=== PATIENT | female | born 1945 | race African-American/Black ===

== ENCOUNTER 2017-02-18 20:04 | Emergency (ER) | payer MEDICAID, OTHER ==
[~2017-02-18] VITALS: Ht 167.6 cm; Wt 90.7 kg
[~2017-02-18 20:04] MED LIST: ALBUTEROL SULF8.5 GM INH; ALBUTEROL2.5 MG/3 M HHN; VICODIN 5-5001 EACH PO
[2017-02-18 20:27] VITALS: BP 165/76
--- NOTE | 2017-02-18 20:35 | Emergency Room Report ---
History of Present Illness General Chief Complaint: Pain Source: Patient Present Illness [facility] This is a 71-year-old female with no past medical history. She presents with chief complaint of left calf pain for the last 3 days. Onset was gradual. Mild swelling. Worse with walking. She tried to punch is not helping. Denies any fever chills denies any trauma. Pain is 7/10. No other injury. No shortness of breath. Not on control pill. No family history of blood clot. Allergies: Coded Allergies: PENICILLINS (Verified Allergy, Unknown, 02/18/17) Patient History Past Medical History: see triage record, old chart reviewed Past Surgical History: none Pertinent Family History: none Social History: Denies: smoking Now: No Immunizations: other Reviewed Nursing Documentation: PMH: Agreed, PSxH: Agreed Nursing Documentation-PMH Past Medical History: No History, Except For Hx Asthma: Yes Review of Systems Eye: Denies: blurred vision, eye pain ENT: Denies: ear pain, nose congestion, throat swelling Respiratory: Denies: cough, shortness of breath Cardiovascular: Denies: chest pain, palpitations Gastrointestinal: Denies: abdominal pain, diarrhea, nausea, vomiting Musculoskeletal: Denies: back pain, joint pain Skin: Denies: rash Neurological: Denies: headache, numbness Endocrine: Denies: increased thirst, increased urine Hematologic/Lymphatic: Denies: easy bruising All Other Systems: negative except mentioned in HPI Physical Exam Vital Signs Date Time Temp Pulse Resp B/P Pulse Ox O2 Delivery O2 Flow Rate FiO2 02/18/17 20:10 98.1 56 17 165/76 97 Room Air vitals with hypertension Sp02 EP Interpretation: reviewed, normal General Appearance: well appearing, no apparent distress, alert Head: normocephalic, atraumatic Eyes: bilateral eye EOMI, bilateral eye PERRL ENT: hearing grossly normal, normal pharynx Neck: full range of motion, supple, no meningismus Respiratory: chest non-tender, lungs clear, normal breath sounds Cardiovascular #1: regular rate, rhythm, no murmur Gastrointestinal: normal bowel sounds, non tender, no mass, no organomegaly, no bruit, non-distended Musculoskeletal: back normal, normal range of motion, other - Left calf with mild tenderness. Less than 1 cm increase in size compared to right. Sensation normal. Pulses normal. Psychiatric: mood/affect normal Skin: warm/dry Medical Decision Making Diagnostic Impression: Primary Impression: Muscle strain ER Course Patient with pain to the left calf. She said she walks a lot and very active. No evidence of DVT or fracture. Most likely a muscle strain or small tear. We' ll discharge home. 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 02/18/17 Additional Instructions: Followup with your DrCelestino in 7 days. Return if symptom worsen. VARUN GREEN M.D. Feb 18, 2017 20:35
[2017-02-18 21:30] VITALS: BP 155/74
[2017-02-18] MEDS ORDERED: IBUPROFEN600 MG ORAL (22:07)
[2017-02-18 22:13] VITALS: BP 155/74
--- NOTE | 2017-02-21 19:26 | Diagnostic Imaging Report ---
APPROVED REPORT CPT Code: 87097 Present Symptoms Lower Extremity Pain: Left LEFT LEG: Venous imaging reveals a patent deep venous system. There is no evidence of thrombus within the femoral, popliteal or tibial segments. The greater saphenous vein is also within normal limits. Doppler indicates normal spontaneous flow within these segments.
== END 2017-02-18 22:13 | disposition home or self-care (01) ==
LOC: EMR 20:40
DX: S86.912A Strain of unspecified muscle(s) and tendon(s) at lower leg level, left leg, initial encounter (principal); J45.909 Unspecified asthma, uncomplicated; Z88.0 Allergy status to penicillin; X58.XXXA Exposure to other specified factors, initial encounter; Y92.9 Unspecified place or not applicable
CPT/HCPCS: 93970; 99284

== ENCOUNTER 2017-12-22 20:28 | Emergency (ER) | payer OTHER ==
[~2017-12-22] VITALS: Ht 167.6 cm; Wt 93.4 kg
[~2017-12-22 20:28] MED LIST changes: +IBUPROFEN600 MG ORAL
[2017-12-22] MEDS ORDERED: LORazepam Inj 2mg/ml 1ml IV ONE (21:00)
--- NOTE | 2017-12-22 21:00 | Emergency Room Report ---
History of Present Illness General Chief Complaint: Palpitations Source: Patient Present Illness HPI This is a 72-year-old female with history of high blood pressure. She presents with chief complaint of palpitation. Been ongoing all day. Rajani heart beating fast. She has similar symptoms 9 months ago when she was at another hospital was admitted overnight. He said that her go the next day. Workup was negative. No fever chills but no nausea no vomiting. No syncope. She thinks it may be secondary to her blood pressure medication. She's complaint taking clindamycin and Tylenol No. 3 for a dental infection. Never had follow-up with dredgemaster for Holter monitor. Allergies: Coded Allergies: ASPIRIN (Verified Allergy, Unknown, 12/22/17) PENICILLINS (Verified Allergy, Unknown, 02/18/17) Patient History Past Medical History: see triage record, old chart reviewed Past Surgical History: none Pertinent Family History: none Social History: Denies: smoking Now: No Immunizations: other Reviewed Nursing Documentation: PMH: Agreed; PSxH: Agreed Nursing Documentation-PMH Past Medical History: No History, Except For Hx Hypertension: Yes Hx Asthma: Yes Review of Systems Cardiovascular: Reports: palpitations Physical Exam Vital Signs Date Time Temp Pulse Resp B/P (MAP) Pulse Ox O2 Delivery O2 Flow Rate FiO2 12/22/17 20:38 97.8 74 15 151/73 98 Room Air 97.9 vitals normal except for high blood pressure Sp02 EP Interpretation: reviewed, normal General Appearance: well appearing, no apparent distress, alert Head: normocephalic, atraumatic Eyes: bilateral eye PERRL, bilateral eye EOMI ENT: hearing grossly normal, normal pharynx Neck: full range of motion, supple, no meningismus Respiratory: chest non-tender, lungs clear, normal breath sounds Cardiovascular #1: regular rate, rhythm, no murmur Gastrointestinal: normal bowel sounds, non tender, no mass, no organomegaly, no bruit, non-distended Musculoskeletal: back normal, gait/station normal, normal range of motion Psychiatric: mood/affect normal Skin: warm/dry Medical Decision Making Diagnostic Impression: Primary Impression: Palpitations EKG Diagnostic Results Rate: normal Rhythm: NSR ST Segments: no acute changes Rhythm Strip Diag. Results Rhythm Strip Time: 20:59 EP Interpretation: yes Rate: 70 Rhythm: NSR, no PVC's, no ectopy Last Vital Signs Date Time Temp Pulse Resp B/P (MAP) Pulse Ox O2 Delivery O2 Flow Rate FiO2 12/22/17 20:38 97.8 74 15 151/73 98 Room Air 97.9 Status: improved Disposition: HOME, SELF-CARE Condition: Stable Patient Instructions: Palpitations Additional Instructions: Follow-up with your DrCelestino for referral to see a dredgemaster. Follow-up within 7 days. I recommend you get a Holter monitor. Return if symptom worsen. VARUN GREEN M.D. Dec 22, 2017 21:00
[2017-12-22 21:19] VITALS: BP 131/67
[2017-12-22 21:31] LABS: BASOPHILS % (AUTO) 1.5 % (0.0-2.0); EOSINOPHILS % (AUTO) 2.1 % (0.0-3.0); HEMATOCRIT 38.9 % (37.0-47.0); HEMOGLOBIN 13.4 G/DL (12.0-16.0); LYMPHOCYTES % (AUTO) 22.6 % (20.0-45.0); MEAN CORPUSCULAR VOLUME 100 FL (80-99); MONOCYTES % (AUTO) 11.5 % (1.0-10.0); NEUTROPHILS % (AUTO) 62.4 % (45.0-75.0); PLATELET COUNT 274 K/UL (150-450); RED BLOOD COUNT 3.91 M/UL (4.20-5.40); WHITE BLOOD COUNT 11.3 K/UL (4.8-10.8)
[2017-12-22 21:36] LABS: ANION GAP 6 mmol/L (5-15); BLOOD UREA NITROGEN 21 mg/dL (7-18); CALCIUM 9.6 MG/DL (8.5-10.1); CARBON DIOXIDE 31 MMOL/L (21-32); CHLORIDE 101 MMOL/L (98-107); CREATININE 1.2 MG/DL (0.55-1.30); POTASSIUM 3.5 MMOL/L (3.5-5.1); SODIUM 138 MMOL/L (136-145)
[2017-12-22] MEDS ORDERED: HYDRALAZINE HCL50 MG ORAL (21:46)
[2017-12-22] MEDS ORDERED: HYDROCHLOROTHIA25 MG ORAL (21:46)
[2017-12-22 21:56] VITALS: BP 137/58
--- NOTE | 2017-12-23 16:40 | Cardiology Report ---
APPROVED REPORT EKG Measurement Heart [id number] Normal sinus rhythm Normal ECG
== END 2017-12-22 21:56 | disposition home or self-care (01) ==
LOC: EMR 20:59
DX: R00.2 Palpitations (principal); I10 Essential (primary) hypertension; J45.909 Unspecified asthma, uncomplicated; Z88.0 Allergy status to penicillin; Z88.6 Allergy status to analgesic agent
CPT/HCPCS: 36415; 80048; 84484; 85025; 93005; 96374; 96375; 99283

== ENCOUNTER 2018-09-16 09:43 | Emergency (ER) | payer OTHER ==
[~2018-09-16] VITALS: Ht 167.6 cm; Wt 91.6 kg
[~2018-09-16 09:43] MED LIST changes: +HYDRALAZINE HCL50 MG ORAL; +HYDROCHLOROTHIA25 MG ORAL
--- NOTE | 2018-09-16 09:58 | NUR ---
ED Nurse Note: Pt came in due to body weakness x 1 week. Pt states whenever she takes her home medications, she feels weak. No other symptoms noted. Pt is AAO x4, ambulates with steady gait. No respiratory distress.
--- NOTE | 2018-09-16 10:20 | NUR ---
ED Nurse Note: Dr Brown at the bed side.
--- NOTE | 2018-09-16 10:28 | Emergency Room Report ---
History of Present Illness General Chief Complaint: Generalized Weakness Source: Patient, Medical Record Present Illness HPI Patient reports that she has had a recent change in medications Has added hydrochlorothiazide to her blood pressure medicine Feels that since then she has been having more weakness than usual Low energy is the way she describes it Denies any change with exertion or position denies any chest pain or shortness of breath denies any vomiting or diarrhea denies any fevers or chills Denies any focality to her weakness Allergies: Coded Allergies: ASPIRIN (Verified Allergy, Unknown, 12/22/17) PENICILLINS (Verified Allergy, Unknown, 02/18/17) Patient History Past Medical History: see triage record Pertinent Family History: none Last Menstrual Period: menopause Reviewed Nursing Documentation: PMH: Agreed; PSxH: Agreed Nursing Documentation-PMH Past Medical History: No History, Except For Hx Hypertension: Yes Hx Asthma: Yes Review of Systems All Other Systems: negative except mentioned in HPI Physical Exam Vital Signs Date Time Temp Pulse Resp B/P (MAP) Pulse Ox O2 Delivery O2 Flow Rate FiO2 09/16/18 09:48 98.2 64 18 160/81 98 Room Air Sp02 EP Interpretation: reviewed, normal General Appearance: well appearing, no apparent distress Head: normocephalic, atraumatic Eyes: bilateral eye PERRL, bilateral eye EOMI ENT: hearing grossly normal, normal pharynx, TMs + canals normal, uvula midline Neck: full range of motion, supple, no meningismus, no bony tend Respiratory: lungs clear, normal breath sounds, no rhonchi, no respiratory distress, no retraction, no accessory muscle use Cardiovascular #1: normal peripheral pulses, regular rate, rhythm, no edema, no gallop, no JVD, no murmur Gastrointestinal: normal bowel sounds, non tender, soft, no mass, no organomegaly, non-distended, no guarding, no hernia, no pulsatile mass, no rebound Genitourinary: no CVA tenderness Musculoskeletal: normal inspection Neurologic: oriented x3, responsive, molder feeder III-XII nml as tested, motor strength/ tone normal, sensory intact Psychiatric: mood/affect normal Skin: normal color, no rash, warm/dry, palpation normal Lymphatic: normal inspection, no adenopathy Medical Decision Making Diagnostic Impression: Primary Impression: Episode of generalized weakness Additional Impressions: UTI (urinary tract infection) Dehydration ER Course Given the patient's history exam and presentation multiple differentials and consideration Patient has extensive blood work initiated There is evidence of some dehydration with elevated CK urine sample also shows infection Patient is encouraged to discuss her medications including hydrochlorothiazide with her physician patient also reports some cramping which could be related to her medication Labs Test 09/16/18 10:35 White Blood Count 9.1 K/UL (4.8-10.8) Red Blood Count 4.25 M/UL (4.20-5.40) Hemoglobin 13.9 G/DL (12.0-16.0) Hematocrit 44.0 % (37.0-47.0) Mean Corpuscular Volume 104 FL (80-99) Mean Corpuscular Hemoglobin 32.7 PG (27.0-31.0) Mean Corpuscular Hemoglobin Concent 31.6 G/DL (32.0-36.0) Red Cell Distribution Width 11.2 % (11.6-14.8) Platelet Count 309 K/UL (150-450) Mean Platelet Volume 5.9 FL (6.5-10.1) Neutrophils (%) (Auto) 65.2 % (45.0-75.0) Lymphocytes (%) (Auto) 23.1 % (20.0-45.0) Monocytes (%) (Auto) 8.7 % (1.0-10.0) Eosinophils (%) (Auto) 1.4 % (0.0-3.0) Basophils (%) (Auto) 1.5 % (0.0-2.0) Urine Color Pale yellow Urine Appearance Slightly cloudy Urine pH 7 (4.5-8.0) Urine Specific [place] 1.005 (1.005-1.035) Urine Protein Negative (NEGATIVE) Urine Glucose (UA) Negative (NEGATIVE) Urine Ketones Negative (NEGATIVE) Urine Blood Negative (NEGATIVE) Urine Nitrite Negative (NEGATIVE) Urine Bilirubin Negative (NEGATIVE) Urine Urobilinogen Normal MG/DL (0.0-1.0) Urine Leukocyte Esterase 3+ (NEGATIVE) Urine RBC 0 /HPF (0 - 2) Urine WBC 15-20 /HPF (0 - 2) Urine Squamous Epithelial Cells Few /LPF (NONE/OCC) Urine Bacteria Occasional /HPF (NONE) Sodium Level 138 MMOL/L (136-145) Potassium Level 3.9 MMOL/L (3.5-5.1) Chloride Level 101 MMOL/L (98-107) Carbon Dioxide Level 33 MMOL/L (21-32) Anion Gap 4 mmol/L (5-15) Blood Urea Nitrogen 12 mg/dL (7-18) Creatinine 1.0 MG/DL (0.55-1.30) Estimat Glomerular Filtration Rate mL/min (>60) Glucose Level 90 MG/DL (74-106) Calcium Level 10.0 MG/DL (8.5-10.1) Total Bilirubin 0.5 MG/DL (0.2-1.0) Aspartate Amino Transf (AST/SGOT) 20 U/L (15-37) Alanine Aminotransferase (ALT/SGPT) 33 U/L (12-78) Alkaline Phosphatase 81 U/L (46-116) Total Creatine Kinase 516 U/L (26-308) Creatine Kinase MB 2.7 NG/ML (0.0-3.6) Creatine Kinase MB Relative Index 0.5 Troponin I 0.000 ng/mL (0.000-0.056) Total Protein 8.5 G/DL (6.4-8.2) Albumin 4.1 G/DL (3.4-5.0) Globulin 4.4 g/dL Albumin/Globulin Ratio 0.9 (1.0-2.7) Lipase 98 U/L (73-393) Thyroid Stimulating Hormone (TSH) 1.579 uiU/mL (0.358-3.740) Free Thyroxine 0.89 NG/DL (0.76-1.46) Rhythm Strip Diag. Results EP Interpretation: yes Rate: 70 Rhythm: NSR, no PVC's, no ectopy Last Vital Signs Date Time Temp Pulse Resp B/P (MAP) Pulse Ox O2 Delivery O2 Flow Rate FiO2 09/16/18 09:58 64 18 Room Air 09/16/18 09:48 98.2 160/81 98 Status: improved Disposition: HOME, SELF-CARE Condition: Improved Scripts Trimethoprim/Sulfamethoxazole 160/800* (BACTRIM DS TABLET*) 1 Each Tablet 1 TAB ORAL Q12H, #14 TAB 0 Refills Prov: Peter Brown DO 09/16/18 Referrals: NON PHYSICIAN (PCP) Additional Instructions: Patient is provided with the discharge instructions notified to follow up with primary doctor in the next 2-3 days otherwise return to the er with any worsening symptoms. Please note that this report is being documented using DRAGON technology. This can lead to erroneous entry secondary to incorrect interpretation by the dictating instrument. Peter Brown DO Sep 16, 2018 10:28
--- NOTE | 2018-09-16 10:40 | NUR ---
ED Nurse Note: Blood and urine sent.
[2018-09-16 10:44] VITALS: BP 164/66
[2018-09-16 10:51] LABS: APPEARANCE,URINE SLIGHTLY CLOUDY; BILIRUBIN, URINE NEGATIVE (NEGATIVE); COLOR,URINE PALE YELLOW; GLUCOSE, URINE (UA) NEGATIVE (NEGATIVE); KETONES,URINE NEGATIVE (NEGATIVE); LEUKOCYTE ESTERASE ,URINE 3+ (NEGATIVE); NITRITE,URINE NEGATIVE (NEGATIVE); PH,URINE 7 (4.5-8.0); PROTEIN,URINE NEGATIVE (NEGATIVE); UROBILINOGEN,URINE NORMAL MG/DL (0.0-1.0)
[2018-09-16 10:53] LABS: BASOPHILS % (AUTO) 1.5 % (0.0-2.0); EOSINOPHILS % (AUTO) 1.4 % (0.0-3.0); HEMOGLOBIN 13.9 G/DL (12.0-16.0); LYMPHOCYTES % (AUTO) 23.1 % (20.0-45.0); MEAN CORPUSCULAR VOLUME 104 FL (80-99); MONOCYTES % (AUTO) 8.7 % (1.0-10.0); NEUTROPHILS % (AUTO) 65.2 % (45.0-75.0); PLATELET COUNT 309 K/UL (150-450); RED BLOOD COUNT 4.25 M/UL (4.20-5.40); RED CELL DISTRIBUTION WIDTH 11.2 % (11.6-14.8); WHITE BLOOD COUNT 9.1 K/UL (4.8-10.8)
[2018-09-16 11:05] LABS: ANION GAP 4 mmol/L (5-15); BLOOD UREA NITROGEN 12 mg/dL (7-18); CARBON DIOXIDE 33 MMOL/L (21-32); CHLORIDE 101 MMOL/L (98-107); POTASSIUM 3.9 MMOL/L (3.5-5.1); SODIUM 138 MMOL/L (136-145)
[2018-09-16 11:40] LABS: ALANINE AMINOTRANSFERASE 33 U/L (12-78); ALBUMIN 4.1 G/DL (3.4-5.0); ALBUMIN/GLOBULIN RATIO 0.9 (1.0-2.7); ALKALINE PHOSPHATASE 81 U/L (46-116); ASPARTATE AMINO TRANSFERASE 20 U/L (15-37); BILIRUBIN,TOTAL 0.5 MG/DL (0.2-1.0); CKMB 2.7 NG/ML (0.0-3.6); CREATINE KINASE 516 U/L (26-308)
--- NOTE | 2018-09-16 11:44 | Diagnostic Imaging Report ---
Indication: Dyspnea Comparison: 04/22/2012 A single view chest radiograph was obtained. Findings: Cardiomediastinal appearance is within normal limits for age. The lungs are clear. Pulmonary vascularity is appropriate. The diaphragmatic contour is smooth and costophrenic angles are sharp. No pleural effusions are identified. The bones are unremarkable. Impression: No acute findings
[2018-09-16] MEDS ORDERED: Bactrim-DS 1 tab ORAL ONE (11:45)
[2018-09-16] MEDS ORDERED: BACTRIM DS TAB1 EAC1 ORAL (12:01)
[2018-09-16 12:11] VITALS: BP 151/80
--- NOTE | 2018-09-16 12:11 | NUR ---
ED Nurse Note: Pt cleared by ER MD for discharge. DC instructions/prescription given and explained to pt and verbalized understanding of teachings. All medical devices such as ID band/IV removed. Pt is AAO x4, ambulatory with all belongings sent.
--- NOTE | 2018-09-17 17:25 | Cardiology Report ---
APPROVED REPORT EKG Measurement Heart [id number] [place] P61 [id number] Sinus bradycardia Otherwise normal ECG
== END 2018-09-16 12:11 | disposition home or self-care (01) ==
LOC: EMR 10:25
DX: R53.1 Weakness (principal); N39.0 Urinary tract infection, site not specified; E86.0 Dehydration; I10 Essential (primary) hypertension; J45.909 Unspecified asthma, uncomplicated; Z88.0 Allergy status to penicillin; Z88.6 Allergy status to analgesic agent
CPT/HCPCS: 36415; 71045; 80053; 81003; 82550; 82553; 83690; 84439; 84443; 84484; 85025; 87086; 93005; 96360; 99284

== ENCOUNTER 2019-06-10 09:21 | Emergency (ER) | payer OTHER ==
[~2019-06-10] VITALS: Ht 167.6 cm; Wt 100.2 kg
[~2019-06-10 09:21] MED LIST changes: +BACTRIM DS TAB1 EAC1 ORAL
[2019-06-10 09:30] VITALS: BP 136/66
--- NOTE | 2019-06-10 09:45 | Emergency Room Report ---
History of Present Illness General Chief Complaint: Generalized Weakness Source: Medical Record Present Illness HPI 74-year-old female with history of hypertension presents with generalized weakness and loose bowel movements since yesterday. Patient stated the weakness started 3 days ago but worsened yesterday. She had 6 episodes of loose watery bowels, nonbloody, non-mucus. She denies any recent travel. She denies any recent illness. She denies any fevers chills nausea vomiting, rectal bleeding, history of abdominal surgeries. Patient states she is pending a D&C for abnormal vaginal bleeding and fibroids found on a scan earlier this year. Allergies: Coded Allergies: ASPIRIN (Verified Allergy, Unknown, 12/22/17) PENICILLINS (Verified Allergy, Unknown, 02/18/17) Nursing Documentation-[facility] Past Medical History: No History, Except For Hx Hypertension: Yes Hx Asthma: Yes Review of Systems Constitutional: Denies: chills, fever Respiratory: Denies: cough, shortness of breath Cardiovascular: Denies: chest pain, palpitations Gastrointestinal: Reports: diarrhea; Denies: abdominal pain, nausea, vomiting Genitourinary: Denies: dysuria, frequency Musculoskeletal: Denies: back pain Neurological: Denies: headache, numbness Physical Exam Vital Signs Date Time Temp Pulse Resp B/P (MAP) Pulse Ox O2 Delivery O2 Flow Rate FiO2 06/10/19 09:24 98.1 58 18 130/72 (91) 95 Room Air Sp02 EP Interpretation: reviewed, normal General Appearance: no apparent distress, alert, GCS 15, non-toxic Head: normocephalic, atraumatic Neck: full range of motion, supple/symm/no masses Respiratory: chest non-tender, lungs clear, normal breath sounds, speaking full sentences Cardiovascular #1: regular rate, rhythm, no edema Cardiovascular #2: 2+ radial (R), 2+ radial (L) Gastrointestinal: normal bowel sounds, non tender, soft, non-distended, no guarding, no rebound Genitourinary: normal inspection, no CVA tenderness Musculoskeletal: other - Moves all extremities spontaneously. Neurologic: other - No focal neurological deficits Medical Decision Making ER Course 72-year-old female who presents with weakness for 3 days. Associated with diarrhea. Patient's physical exam within normal limits. Differential includes electrolyte abnormality, dehydration, kidney failure, Patient's testing were to be within normal limits. Patient is stable for outpatient follow-up. Labs Test 06/10/19 09:34 06/10/19 09:43 Urine Color Pale yellow Urine Appearance Clear Urine pH 5 (4.5-8.0) Urine Specific [place] 1.010 (1.005-1.035) Urine Protein Negative (NEGATIVE) Urine Glucose (UA) Negative (NEGATIVE) Urine Ketones Negative (NEGATIVE) Urine Blood Negative (NEGATIVE) Urine Nitrite Negative (NEGATIVE) Urine Bilirubin Negative (NEGATIVE) Urine Urobilinogen Normal MG/DL (0.0-1.0) Urine Leukocyte Esterase 1+ (NEGATIVE) Urine RBC 0 /HPF (0 - 2) Urine WBC 0-2 /HPF (0 - 2) Urine Squamous Epithelial Cells Occasional /LPF Urine Bacteria Occasional /HPF (NONE) White Blood Count 6.9 K/UL (4.8-10.8) Red Blood Count 4.17 M/UL (4.20-5.40) Hemoglobin 13.6 G/DL (12.0-16.0) Hematocrit 40.5 % (37.0-47.0) Mean Corpuscular Volume 97 FL (80-99) Mean Corpuscular Hemoglobin 32.7 PG (27.0-31.0) Mean Corpuscular Hemoglobin Concent 33.7 G/DL (32.0-36.0) Red Cell Distribution Width 10.0 % (11.6-14.8) Platelet Count 277 K/UL (150-450) Mean Platelet Volume 6.2 FL (6.5-10.1) Neutrophils (%) (Auto) 72.1 % (45.0-75.0) Lymphocytes (%) (Auto) 12.5 % (20.0-45.0) Monocytes (%) (Auto) 12.8 % (1.0-10.0) Eosinophils (%) (Auto) 1.6 % (0.0-3.0) Basophils (%) (Auto) 0.9 % (0.0-2.0) Sodium Level 140 MMOL/L (136-145) Potassium Level 3.9 MMOL/L (3.5-5.1) Chloride Level 104 MMOL/L (98-107) Carbon Dioxide Level 29 MMOL/L (21-32) Anion Gap 7 mmol/L (5-15) Blood Urea Nitrogen 11 mg/dL (7-18) Creatinine 1.0 MG/DL (0.55-1.30) Estimat Glomerular Filtration Rate mL/min (>60) Glucose Level 99 MG/DL (74-106) Calcium Level 8.5 MG/DL (8.5-10.1) Total Bilirubin 0.5 MG/DL (0.2-1.0) Aspartate Amino Transf (AST/SGOT) 36 U/L (15-37) Alanine Aminotransferase (ALT/SGPT) 51 U/L (12-78) Alkaline Phosphatase 74 U/L (46-116) Total Protein 8.0 G/DL (6.4-8.2) Albumin 3.8 G/DL (3.4-5.0) Globulin 4.2 g/dL Albumin/Globulin Ratio 0.9 (1.0-2.7) Lipase 82 U/L (73-393) Lab Results Impression Within normal limits Last Vital Signs Date Time Temp Pulse Resp B/P (MAP) Pulse Ox O2 Delivery O2 Flow Rate FiO2 06/10/19 09:24 98.1 58 18 130/72 (91) 95 Room Air Disposition: HOME, SELF-CARE Condition: Stable Scripts Ondansetron* (ZOFRAN*) 4 Mg Tablet 4 MG ORAL Q6H PRN for Nausea & Vomiting for 3 Days, #10 TAB Prov: Marquise Leonardo M.D. 06/10/19 Marquise Leonardo M.D. Jun 10, 2019 09:45
[2019-06-10 09:51] LABS: APPEARANCE,URINE CLEAR; BILIRUBIN, URINE NEGATIVE (NEGATIVE); COLOR,URINE PALE YELLOW; GLUCOSE, URINE (UA) NEGATIVE (NEGATIVE); KETONES,URINE NEGATIVE (NEGATIVE); LEUKOCYTE ESTERASE ,URINE 1+ (NEGATIVE); NITRITE,URINE NEGATIVE (NEGATIVE); PH,URINE 5 (4.5-8.0); PROTEIN,URINE NEGATIVE (NEGATIVE); UROBILINOGEN,URINE NORMAL MG/DL (0.0-1.0)
[2019-06-10 10:07] LABS: BASOPHILS % (AUTO) 0.9 % (0.0-2.0); EOSINOPHILS % (AUTO) 1.6 % (0.0-3.0); HEMATOCRIT 40.5 % (37.0-47.0); HEMOGLOBIN 13.6 G/DL (12.0-16.0); LYMPHOCYTES % (AUTO) 12.5 % (20.0-45.0); MEAN CORPUSCULAR VOLUME 97 FL (80-99); MONOCYTES % (AUTO) 12.8 % (1.0-10.0); NEUTROPHILS % (AUTO) 72.1 % (45.0-75.0); PLATELET COUNT 277 K/UL (150-450); RED BLOOD COUNT 4.17 M/UL (4.20-5.40); WHITE BLOOD COUNT 6.9 K/UL (4.8-10.8)
[2019-06-10 10:25] LABS: ANION GAP 7 mmol/L (5-15); BLOOD UREA NITROGEN 11 mg/dL (7-18); CALCIUM 8.5 MG/DL (8.5-10.1); CARBON DIOXIDE 29 MMOL/L (21-32); CHLORIDE 104 MMOL/L (98-107); POTASSIUM 3.9 MMOL/L (3.5-5.1); SODIUM 140 MMOL/L (136-145)
[2019-06-10 10:29] LABS: ALANINE AMINOTRANSFERASE 51 U/L (12-78); ALBUMIN 3.8 G/DL (3.4-5.0); ALBUMIN/GLOBULIN RATIO 0.9 (1.0-2.7); ALKALINE PHOSPHATASE 74 U/L (46-116); ASPARTATE AMINO TRANSFERASE 36 U/L (15-37); BILIRUBIN,TOTAL 0.5 MG/DL (0.2-1.0)
[2019-06-10 11:30] VITALS: BP 136/51
[2019-06-10] MEDS ORDERED: ZOFRAN4 M3 ORAL (12:31)
[2019-06-10 12:59] VITALS: BP 126/83
== END 2019-06-10 13:00 | disposition home or self-care (01) ==
LOC: EMR 09:50
DX: R53.1 Weakness (principal); Z88.6 Allergy status to analgesic agent; Z88.0 Allergy status to penicillin; I10 Essential (primary) hypertension; R19.7 Diarrhea, unspecified
CPT/HCPCS: 36415; 80053; 81003; 83690; 85025; 96360; Z7502; 99284

== ENCOUNTER 2019-06-12 09:50 | Emergency (ER) | payer OTHER ==
[~2019-06-12] VITALS: Ht 167.6 cm; Wt 98.0 kg
[~2019-06-12 09:50] MED LIST changes: +ZOFRAN4 M3 ORAL
--- NOTE | 2019-06-12 10:08 | NUR ---
ED Nurse Note: PT AMBULATED TO ED WITH A STEADY GAIT C/O DIARRHEA FOR 3 DAYS. PT STATES LAST NIGHT SHE HAD 5 WATERY BOWEL MOVEMENTS. DENIES NAUSEA/VOMITING. PT DENIES BLOOD IN STOOL. PT STATES SHE HAS BEEN FEELING WEAK SINCE HAVING DIARRHEAL EPIDODES. PT PLACED IN GOWN AND PUT ON MONITOR. PT URINE SPECIMEN WAS COLLECTED AND SENT TO LAB.
[2019-06-12 10:09] VITALS: BP 139/69
--- NOTE | 2019-06-12 10:18 | NUR ---
ED Nurse Note: IV LINE ESTABLISHED, LINE IS PATENT AND INTACT. PT BLOOD SPECIMEN COLLECTED AND SENT TO LAB
[2019-06-12] MEDS ORDERED: Dicyclomine HCl 10mg/5ml oral soln ONE (10:41)
[2019-06-12] MEDS ORDERED: Lidocaine 2% 100mg/5ml Carp ONE (10:42)
[2019-06-12] MEDS ORDERED: Dicyclomine HCl 10mg/5ml oral soln ORAL ONE (10:45)
[2019-06-12] MEDS ORDERED: Mylanta II UD 30ml ORAL ONE (10:45)
[2019-06-12] MEDS ORDERED: Lidocaine 2% Visc 15ml soln ORAL ONE (10:45)
[2019-06-12 10:47] LABS: BASOPHILS % (AUTO) 0.6 % (0.0-2.0); HEMATOCRIT 42.2 % (37.0-47.0); HEMOGLOBIN 13.8 G/DL (12.0-16.0); LYMPHOCYTES % (AUTO) 20.8 % (20.0-45.0); MEAN CORPUSCULAR VOLUME 100 FL (80-99); MONOCYTES % (AUTO) 10.8 % (1.0-10.0); NEUTROPHILS % (AUTO) 64.9 % (45.0-75.0); PLATELET COUNT 282 K/UL (150-450); RED CELL DISTRIBUTION WIDTH 10.8 % (11.6-14.8); WHITE BLOOD COUNT 7.6 K/UL (4.8-10.8)
[2019-06-12 10:50] LABS: ANION GAP 7 mmol/L (5-15); BLOOD UREA NITROGEN 11 mg/dL (7-18); CALCIUM 8.4 MG/DL (8.5-10.1); CARBON DIOXIDE 28 MMOL/L (21-32); CHLORIDE 107 MMOL/L (98-107); POTASSIUM 3.7 MMOL/L (3.5-5.1); SODIUM 142 MMOL/L (136-145)
[2019-06-12 10:52] LABS: INR 0.9 (0.9-1.1)
[2019-06-12 10:54] LABS: APPEARANCE,URINE CLEAR; BILIRUBIN, URINE NEGATIVE (NEGATIVE); COLOR,URINE PALE YELLOW; GLUCOSE, URINE (UA) NEGATIVE (NEGATIVE); KETONES,URINE NEGATIVE (NEGATIVE); LEUKOCYTE ESTERASE ,URINE NEGATIVE (NEGATIVE); NITRITE,URINE NEGATIVE (NEGATIVE); PH,URINE 5 (4.5-8.0); PROTEIN,URINE NEGATIVE (NEGATIVE); UROBILINOGEN,URINE NORMAL MG/DL (0.0-1.0)
[2019-06-12 10:55] LABS: ALANINE AMINOTRANSFERASE 46 U/L (12-78); ALBUMIN 3.8 G/DL (3.4-5.0); ALBUMIN/GLOBULIN RATIO 0.9 (1.0-2.7); ALKALINE PHOSPHATASE 79 U/L (46-116); ASPARTATE AMINO TRANSFERASE 24 U/L (15-37); BILIRUBIN,TOTAL 0.4 MG/DL (0.2-1.0)
[2019-06-12 12:05] VITALS: BP 137/55
[2019-06-12 13:06] VITALS: BP 142/54
--- NOTE | 2019-06-12 13:06 | NUR ---
ED Nurse Note: Pt ambulated to the bathroom with steady gait. Pt is back on bus monitor. NO sign of acute distress.
--- NOTE | 2019-06-12 13:38 | Emergency Room Report ---
History of Present Illness General Chief Complaint: Diarrhea Source: Patient Present Illness HPI Patient is a 74-year-old female presented after increased generalized weakness. Patient reports having increased abdominal pain. She is associated diarrhea. She recent visit to this emergency department. She was noted to have increased difficulty with lethargy as well as feeling somewhat lightheaded. She denies any hematuria or bloody stools. She had not been vomiting Allergies: Coded Allergies: ASPIRIN (Verified Allergy, Unknown, 12/22/17) PENICILLINS (Verified Allergy, Unknown, 02/18/17) Patient History Past Medical History: see triage record Last Menstrual Period: na Reviewed Nursing Documentation: PMH: Agreed; PSxH: Agreed Nursing Documentation-PMH Past Medical History: No History, Except For Hx Hypertension: Yes Hx Asthma: Yes Review of Systems All Other Systems: negative except mentioned in HPI Physical Exam Vital Signs Date Time Temp Pulse Resp B/P (MAP) Pulse Ox O2 Delivery O2 Flow Rate FiO2 06/12/19 09:54 98.2 56 20 139/69 (92) 98 Room Air Sp02 EP Interpretation: reviewed, normal General Appearance: normal inspection, well appearing, no apparent distress, alert, GCS 15 Head: atraumatic ENT: normal ENT inspection, hearing grossly normal, normal voice Neck: normal inspection, full range of motion, supple, no bony tend Respiratory: normal inspection, lungs clear, normal breath sounds, no respiratory distress, no retraction, no wheezing Cardiovascular #1: no edema, bradycardia Gastrointestinal: normal inspection, normal bowel sounds, non tender, soft, no guarding, no hernia Genitourinary: no CVA tenderness Musculoskeletal: normal inspection, back normal, normal range of motion Neurologic: normal inspection, alert, responsive, speech normal Psychiatric: normal inspection, judgement/insight normal, mood/affect normal Medical Decision Making Diagnostic Impression: Primary Impression: Episode of generalized weakness Additional Impressions: Bradycardia Diarrhea ER Course Patient presented for increased generalized weakness. Differential diagnosis include was not limited to symptomatic bradycardia, dehydration, Salmonella among others. Because of complexity of patient's case laboratory tests and imaging studies were ordered. Patient was noted to have some prior history of weakness.EKG did show some bradycardia. Patient with some improvement dizziness after IV hydration. Patient was discussed with Dr Sanon who agreed to accept the patient due to bradycardia. Labs Test 06/12/19 10:00 06/12/19 10:18 Urine Color Pale yellow Urine Appearance Clear Urine pH 5 (4.5-8.0) Urine Specific [place] 1.015 (1.005-1.035) Urine Protein Negative (NEGATIVE) Urine Glucose (UA) Negative (NEGATIVE) Urine Ketones Negative (NEGATIVE) Urine Blood Negative (NEGATIVE) Urine Nitrite Negative (NEGATIVE) Urine Bilirubin Negative (NEGATIVE) Urine Urobilinogen Normal MG/DL (0.0-1.0) Urine Leukocyte Esterase Negative (NEGATIVE) White Blood Count 7.6 K/UL (4.8-10.8) Red Blood Count 4.20 M/UL (4.20-5.40) Hemoglobin 13.8 G/DL (12.0-16.0) Hematocrit 42.2 % (37.0-47.0) Mean Corpuscular Volume 100 FL (80-99) Mean Corpuscular Hemoglobin 32.9 PG (27.0-31.0) Mean Corpuscular Hemoglobin Concent 32.8 G/DL (32.0-36.0) Red Cell Distribution Width 10.8 % (11.6-14.8) Platelet Count 282 K/UL (150-450) Mean Platelet Volume 6.3 FL (6.5-10.1) Neutrophils (%) (Auto) 64.9 % (45.0-75.0) Lymphocytes (%) (Auto) 20.8 % (20.0-45.0) Monocytes (%) (Auto) 10.8 % (1.0-10.0) Eosinophils (%) (Auto) 3.0 % (0.0-3.0) Basophils (%) (Auto) 0.6 % (0.0-2.0) Prothrombin Time 10.0 SEC (9.30-11.50) Prothromb Time International Ratio 0.9 (0.9-1.1) Activated Partial Thromboplast Time 28 SEC (23-33) Sodium Level 142 MMOL/L (136-145) Potassium Level 3.7 MMOL/L (3.5-5.1) Chloride Level 107 MMOL/L (98-107) Carbon Dioxide Level 28 MMOL/L (21-32) Anion Gap 7 mmol/L (5-15) Blood Urea Nitrogen 11 mg/dL (7-18) Creatinine 1.0 MG/DL (0.55-1.30) Estimat Glomerular Filtration Rate mL/min (>60) Glucose Level 76 MG/DL (74-106) Calcium Level 8.4 MG/DL (8.5-10.1) Total Bilirubin 0.4 MG/DL (0.2-1.0) Aspartate Amino Transf (AST/SGOT) 24 U/L (15-37) Alanine Aminotransferase (ALT/SGPT) 46 U/L (12-78) Alkaline Phosphatase 79 U/L (46-116) Troponin I 0.000 ng/mL (0.000-0.056) Total Protein 7.9 G/DL (6.4-8.2) Albumin 3.8 G/DL (3.4-5.0) Globulin 4.1 g/dL Albumin/Globulin Ratio 0.9 (1.0-2.7) Lipase 83 U/L (73-393) EKG Diagnostic Results Rate: bradycardiac Rhythm: NSR ST Segments: no acute changes Last Vital Signs Date Time Temp Pulse Resp B/P (MAP) Pulse Ox O2 Delivery O2 Flow Rate FiO2 06/12/19 13:06 98.3 61 19 142/54 99 Room Air Status: improved Disposition: XFER SHT-TRM HOSP Condition: Stable Referrals: NON PHYSICIAN (PCP) Chandana Mar MD Jun 12, 2019 13:38
--- NOTE | 2019-06-12 14:56 | NUR ---
ED Nurse Note: telephone report given to gloria akinsmaterial handling warehouse supervisor from [facility] for continuity of care
[2019-06-12 15:05] VITALS: BP 145/64
[2019-06-12 16:15] VITALS: BP 144/60
--- NOTE | 2019-06-12 16:15 | NUR ---
ED Nurse Note: [facility] AT BEDSIDE TO TRANSPORT PT. PT IS AOX4 DENIES PAIN AT THIS TIME, PT TOOK ALL BELONGINGS. IV LINE INTACT, PATENT. VSS. NO ACUTE DISTRESS NOTED
--- NOTE | 2019-06-13 10:50 | Cardiology Report ---
APPROVED REPORT EKG Measurement Heart [id number] [id number] Sinus bradycardia with 1st degree AV block Otherwise normal ECG
== END 2019-06-12 16:15 | disposition short-term general hospital (02) ==
LOC: EMR 10:19
DX: R53.1 Weakness (principal); R00.1 Bradycardia, unspecified; R19.7 Diarrhea, unspecified; I10 Essential (primary) hypertension; J45.909 Unspecified asthma, uncomplicated; Z88.6 Allergy status to analgesic agent; Z88.0 Allergy status to penicillin
CPT/HCPCS: 36415; 80053; 81003; 83690; 84484; 85025; 85610; 85730; 93005; 96374; J2405; Z7502; 99284